=== PATIENT | male | born 1945 | race Caucasian/White ===

== ENCOUNTER 2024-09-23 10:35 | Day surgery (SDC) | payer MEDICARE, OTHER, SELFPAY ==
[2024-09-21 13:39] VITALS: BMI 32.7
--- NOTE | 2024-09-22 12:46 | P.CONAN_ITS ---
Documented by User: Vidhi Talavera NP 09/22/24 12:50 HPI - Anesthesia Eval Consult details Narrative: 79yo M for Upper Endoscopy and Colonoscopy Pacer in situ for SSS 2020 Follows [facility] cardiology. Stable at 06/2024 office visit Anesthesia Pre-Procedure Meds Is the patient on any of the following meds?: GLP1/DPP4 PMFSH Past Medical History Medical History Diabetes Hx of radiation therapy Prostate cancer Barretts esophagus Tubular adenoma Hyperlipidemia HTN (hypertension) Sick sinus syndrome Surgical History Surgical History Hx of knee surgery Hx of hernia repair Hx of hand surgery S/P prostatectomy History of esophagogastroduodenoscopy (EGD) H/O colonoscopy History of permanent cardiac pacemaker placement Social History Social History Advance Directives: No Advance Directives Information Provided: Yes Meds Allergies Allergy/AdvReac Type Severity Reaction Status Date / Time No Known Allergies Allergy Verified 09/23/24 11:18 Home Medications ?Medication ?Instructions ?Recorded ?Confirmed ?Last Taken ?Type amlodipine 10 mg tablet 10 mg PO DAILY 09/21/24 09/21/24 Unknown History carvedilol 6.25 mg tablet 6.25 mg PO BID 09/21/24 09/21/24 Unknown History cholecalciferol (vitamin D3) 25 25 mcg PO DAILY 09/21/24 09/21/24 Unknown History mcg (1,000 unit) tablet (Vitamin D3) diphenoxylate-atropine 2.5 1 tab PO BID PRN Diarrhea 09/21/24 09/21/24 Unknown History mg-0.025 mg tablet fenofibrate micronized 200 mg 200 mg PO DAILY 09/21/24 09/21/24 Unknown History capsule gabapentin 100 mg capsule 100 mg PO TID 09/21/24 09/21/24 Unknown History hydralazine 50 mg tablet 50 mg PO TID 09/21/24 09/21/24 Unknown History insulin degludec 100 unit/mL (3 44 unit subcut BID 09/21/24 09/23/24 History mL) subcutaneous pen (Tresiba FlexTouch U-100 insulin) insulin lispro 100 unit/mL subcut 09/21/24 Unknown History subcutaneous pen (Admelog SoloStar U-100 Insulin lispro) levofloxacin 750 mg tablet 750 mg PO DAILY 09/21/24 09/21/24 Unknown History linagliptin 5 mg tablet (Tradjenta) 5 mg PO DAILY 09/21/24 09/21/24 Unknown History metronidazole 500 mg tablet 500 mg PO TID 09/21/24 09/21/24 Unknown History multivitamin 1 tab PO DAILY 09/21/24 09/21/24 Unknown History omega 7-[id number]-[id number]-fish oil 1,000 mg 1 cap PO TID 09/21/24 09/21/24 Unknown History (120 mg-180 mg) capsule (Fish Oil) omeprazole 40 mg capsule,delayed 40 mg PO DAILY 09/21/24 09/21/24 Unknown History release ondansetron 4 mg disintegrating 4 mg PO TID PRN nausea 09/21/24 09/21/24 Unknown History tablet potassium chloride 10 mEq 10 meq PO DAILY 09/21/24 09/21/24 Unknown History tablet,extended release terazosin 2 mg capsule 2 mg PO BEDTIME 09/21/24 09/21/24 Unknown History trazodone 100 mg tablet 100 mg PO BEDTIME 09/21/24 09/21/24 Unknown History triamterene 37.5 2 cap PO DAILY 09/21/24 09/21/24 Unknown History mg-hydrochlorothiazide 25 mg capsule Exam Height,Weight and Vital Signs: Height 5 ft 8 in Weight 97.522 kg Narrative Narrative: Pacer interrogation 07/2024 on chart - 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 Signed By: Maurice Quintero MD Stress Test NM Myocard Perf SPECT Multi ? 08:00:00 Summary No evidence of myocardium at risk for significant reversible ischemia or previous myocardial infarction. Normal left ventricular size and function. Signatures _ _ ? Signed By: Maurice Quintero MD EchoEchocardiogram - Complete ? 09:37:59 Summary Due to suboptimal visual quality, Lumason contrast was used to enhance this study. The left ventricular ejection fraction is 50-55 %. The LV systolic function is low normal . The left ventricular wall thickness is mildly increased. Normal right ventricular size and function. No significant valvular disease. Comparison Comparison is made to the study of September 18, 2020. There is no significant change. Signature ? Signed By: Maurice Quintero MD Assessment and Plan Assessment Anesthesia Assessment: Chart Reviewed Documented by User: Naomi Rendon MD 09/23/24 11:29 PMFSH Past Medical History Medical History Diabetes Hx of radiation therapy Prostate cancer Barretts esophagus Tubular adenoma Hyperlipidemia HTN (hypertension) Sick sinus syndrome Family History Family history of problems with anesthesia: No Surgical History Surgical History Hx of knee surgery Hx of hernia repair Hx of hand surgery S/P prostatectomy History of esophagogastroduodenoscopy (EGD) H/O colonoscopy History of permanent cardiac pacemaker placement History of Problems with Anesthesia: No Social History Social History Advance Directives: No Advance Directives Information Provided: Yes Meds Allergies Allergy/AdvReac Type Severity Reaction Status Date / Time No Known Allergies Allergy Verified 09/23/24 11:18 Home Medications ?Medication ?Instructions ?Recorded ?Confirmed ?Last Taken ?Type amlodipine 10 mg tablet 10 mg PO DAILY 09/21/24 09/21/24 Unknown History carvedilol 6.25 mg tablet 6.25 mg PO BID 09/21/24 09/21/24 Unknown History cholecalciferol (vitamin D3) 25 25 mcg PO DAILY 09/21/24 09/21/24 Unknown History mcg (1,000 unit) tablet (Vitamin D3) diphenoxylate-atropine 2.5 1 tab PO BID PRN Diarrhea 09/21/24 09/21/24 Unknown History mg-0.025 mg tablet fenofibrate micronized 200 mg 200 mg PO DAILY 09/21/24 09/21/24 Unknown History capsule gabapentin 100 mg capsule 100 mg PO TID 09/21/24 09/21/24 Unknown History hydralazine 50 mg tablet 50 mg PO TID 09/21/24 09/21/24 Unknown History insulin degludec 100 unit/mL (3 44 unit subcut BID 09/21/24 09/23/24 History mL) subcutaneous pen (Tresiba FlexTouch U-100 insulin) insulin lispro 100 unit/mL subcut 09/21/24 Unknown History subcutaneous pen (Admelog SoloStar U-100 Insulin lispro) levofloxacin 750 mg tablet 750 mg PO DAILY 09/21/24 09/21/24 Unknown History linagliptin 5 mg tablet (Tradjenta) 5 mg PO DAILY 09/21/24 09/21/24 Unknown History metronidazole 500 mg tablet 500 mg PO TID 09/21/24 09/21/24 Unknown History multivitamin 1 tab PO DAILY 09/21/24 09/21/24 Unknown History omega 7-pvf-sid-fish oil 1,000 mg 1 cap PO TID 09/21/24 09/21/24 Unknown History (120 mg-180 mg) capsule (Fish Oil) omeprazole 40 mg capsule,delayed 40 mg PO DAILY 09/21/24 09/21/24 Unknown History release ondansetron 4 mg disintegrating 4 mg PO TID PRN nausea 09/21/24 09/21/24 Unknown History tablet potassium chloride 10 mEq 10 meq PO DAILY 09/21/24 09/21/24 Unknown History tablet,extended release terazosin 2 mg capsule 2 mg PO BEDTIME 09/21/24 09/21/24 Unknown History trazodone 100 mg tablet 100 mg PO BEDTIME 09/21/24 09/21/24 Unknown History triamterene 37.5 2 cap PO DAILY 09/21/24 09/21/24 Unknown History mg-hydrochlorothiazide 25 mg capsule Exam Airway Mallampati Class: II TM Dist: <=3cm Neck ROM: Limited Heart: rrr Lungs: cta Assessment and Plan Assessment Anesthesia Assessment: Anesthesia Plan Discussed Final Anesthetic Review Family History of Problems with Anesthesia: No History of Problems with Anesthesia: No NPO: Yes Final Preanesthetic Review: No Changes in Pt Med Stat, Meds/Allgs Chart Reviewed, Consent Obtained/Reviewed and Anes Risks/Benef Reviewed Patient Risk: Intermediate Procedure Risk: Low Anesthetic Plan Anesthetic Plan: MAC: Disposition: Standard PACU, Extended PACU, Inp. Admit - Standard Bed, Inp. Admit - IMC and Inp. Admit - ICU
[2024-09-23 11:27] VITALS: BMI 33.0
--- NOTE | 2024-09-23 11:45 | MHC.SHP ---
Pre-Procedural Eval Section A - 24 Hr Update-Section A only Date of Service: 09/23/24 Section B - Complete if H&P > 30 days Chief Complaint: Diverticulitis of intestine,diarrhea,abnormal find Details of Present Illness: see H&P no changes Relevant Family History (Specify if Yes): No Relevant Social History: None Present Medications: see Short Stay Collaborative assessment Medical History: No relevant PMH Allergies: Allergies Allergy/AdvReac Type Severity Reaction Status Date / Time No Known Allergies Allergy Verified 09/23/24 11:18 Review of Systems Sugical H&P ROS: Negative: Constitution, Cardiovascular, Respiratory, Neurological, Psychiatric, Hem-Onc, Allergic/Immunologic, Gastrointestinal, Genitourinary, Musculoskeletal, Integumentary, Endocrine and Eyes/Ears/Nose/Throat Exam Surgical H&P Exam: Normal: HEENT, Normal: Heart, Normal: Lungs, Normal: Extremities, Normal: Abdomen, Normal: Skin and Normal: Neurological Plan Diagnosis/Plan: Unchanged I have reviewed the history and physical and performed a pertinent physical examination on my patient. No changes have occurred unless specified. Time Spent With Patient Time: Total time managing care of this patient today ____ minutes.
[2024-09-23 11:56] VITALS: BP 132/66; PULSE 83; RESP 14; TEMP 36.9; O2SAT 95
[2024-09-23 12:05] LABS: Glucose, Whole Blood 82 mg/dL (60-115)
--- OUTSIDE RECORDS SUMMARY | 2024-09-23 12:38 | XMS_ITS | Continuity of Care Document ---
Author Organization [facility] Primary [facility] e [place] Address [address] [place] [address]- Care Team Providers Care Culinary Instructor Name Role Phone Alta Victoria NP Primary Care Physician ( [phone] Encounter [facility] Date(s): 08/01/24 - 08/31/24 [facility] [address], [place] [address] Encounter Type: Triage Allergies, Adverse Reactions, Alerts No Known Allergies Immunizations Given and Recorded Vaccine Date Status Refusal Reason RSV vaccine preF3, recombinant 05/28/24 Recorded SARS-CoV-2(COVID-19)mRNA-LNP vac([id number]) 05/28/24 Recorded influenza virus vaccine, inactivated 05/14/24 Curt rded influenza virus vaccine, inactivated 06/13/23 Curt rded influenza virus vaccine, inactivated 08/06/22 Give n influenza virus vaccine, inactivated 06/13/20 Give n influenza virus vaccine, inactivated 07/12/19 Curt rded influenza virus vaccine, inactivated 06/07/18 Give n influenza virus vaccine, inactivated 1 06/23/17 Gi augusto influenza virus vaccine, inactivated 2 06/23/16 Gi augusto influenza virus vaccine, inactivated 07/02/15 Give n [id number] bivalent booster vax 06/13/23 Recorded SARS-CoV-2 mRNA (tknitor-eibd-gnwij) vax 12/23/21 Given SARS-CoV-2 (COVID-19) mRNA BNT-162b2 vac 06/11/21 Recorded SARS-CoV-2 (COVID-19) mRNA BNT-162b2 vac 10/29/20 Recorded SARS-CoV-2 (COVID-19) mRNA BNT-162b2 vac 10/08/20 Recorded Influenza Virus Vaccine (oldterm) 07/20/19 Recorde d tetanus/diphtheria/pertussis, acel(Tdap) 02/24/17 Given pneumococcal 13-valent vaccine 11/07/14 Recorded pneumococcal 23-valent vaccine 07/01/12 Recorded pneumococcal 23-valent vaccine 08/11/05 Recorded 1Result Comment: [06/23/2017] [facility]: [id number] 2Result Comment: [06/23/2016] [facility]# [id number] Medications Accu-Check Guide meter Accu-Check Guide meter, See Instructions, # 1 each, Refills 0, Tot. Refills 0, Maintenance, use to check blood glucose 3 times daily E11.9, 11/21/22 10:59:00 AM EDT, Supply, 180, cm, 11/14/22 14:10:00EST, Height, 109.3, kg, 02/24/22 16:33:00 EDT, Dry Weight Start Date: 11/21/22 Status: Ordered Quantity: 1.0 Unit: each Repeat number: 1 Accu-check guide test strips Accu-check guide test strips, See Instructions, # 100 each, Refills 10, Tot. Refills 10, Maintenance, use to check blood glucose 3 times daily E11.9, 11/21/22 11:02:00 AM EDT, Supply, 180, cm, 11/14/22 14:10:00 EST, Height, 109.3, kg, 02/24/22 16:33:00 EDT, Dry Weight Start Date: 11/21/22 Status: Ordered Quantity: 100.0 Unit: each Repeat number: 11 Accu-check soft clix lancets Accu-check soft clix lancets, See Instructions, # 100 each, Refills 10, Tot. Refills 10, Maintenance, use to check blood glucose 3 times daily E11.9, 11/21/22 11:00:00 AM EDT, Supply, 180, cm, 11/14/22 14:10:00 EST, Height, 109.3, kg, 02/24/22 16:33:00 EDT, Dry Weight Start Date: 11/21/22 Status: Ordered Quantity: 100.0 Unit: each Repeat number: 11 acetaminophen 325 mg oral tablet 650 mg, By Mouth, Every 6 hours, PRN, Refills 0, Maintenance, Pain , Mild, 05/04/21 10:57:00 AM EDT,Partial fill upon patient request if the prescription is for a schedule II opioid drug. Start Date: 05/04/21 Status: Ordered Repeat number: 1 Admelog SoloStar 100 units/mL injectable solution See Instructions, (E11.65). BG Before meals Take: 100-150 10 units 151-200 12 units 201-250 14 units 251-300 16 units >301 18 units Scale @ Bedtime for correction 201- 250 2 U 251-300 4 U > 3016U MDD 62 U 90 day supply, # 75 mL, 3 Refills, Maintenance, 04/07/24 12:20:00 PM EDT, [facility]/pharmacy #[id number], Partial fill upon patient request if the prescription is for a schedule II opioid drug., 173, cm, 04/05/24 14:33:00 EDT, Height, 106.2, kg, 01/20/24 7:40:00 EDT, Dry Weight Start Date: 04/07/24 Status: Ordered Quantity: 75.0 Unit: mL Repeat number: 4 Indication: Type 2 diabetes mellitus without complications amLODIPine 10 mg oral tablet 10 mg, 1, tablet, By Mouth, Daily, # 90 tablet, Refills 3, Tot. Refills 3, Maintenance, 09/23/23 5:36:00 PM EST, Route to Pharmacy Electronically, [facility]/pharmacy #[id number], Partial fill upon patient requestif the prescription is for a schedule II opioid drug., 180, cm, 08/19/23 14:21:00 EST, Height, 103,kg, 03/31/23 12:44:00 EDT, Dry Weight Start Date: 09/23/23 Status: Ordered Quantity: 90.0 Unit: tablet Repeat number: 4 Baqsimi One Pack 3 mg nasal powder = 3 mg, Naris, Left, Once, # 2 each, 0 Refills, Soft Stop, 06/05/23 4:01:00 PM EDT, [facility]/pharmacy #[id number], Partial fill upon patient request if the prescription is for a schedule II opioid drug., 180, cm, 06/05/23 15:11:00 EDT, Height, 103, kg, 03/31/23 12:44:00 EDT, Dry Weight Start Date: 06/05/23 Status: Ordered Quantity: 2.0 Unit: each Repeat number: 1 BD ARNOLD 2 GEN PEN NDL 32G 4MM BD ARNOLD 2 GEN PEN NDL 32G 4MM, See Instructions, # 540 Unknown, 4 Refills, Maintenance, INJECT INSULIN 6 TIMES DAILY, 04/01/24 12:57:00 PM EDT, 173, cm, 03/28/24 11:05:00 EDT, Height, 106.2, kg, 01/20/24 7:40:00 EDT, Dry Weight Start Date: 04/01/24 Status: Ordered Quantity: 540.0 Unit: Unknown Repeat number: 1 carvedilol 6.25 mg oral tablet 6.25 mg, 1, tablet, By Mouth, 2 times a day, # 180 tablet, Refills 2, Tot. Refills 2, Maintenance, 06/13/24 1:29:00 PM EDT, Route to Pharmacy Electronically, [facility]/pharmacy #[id number], Partial fill upon patient request if the prescription is for a schedule II opioid drug., 172, cm, 06/11/24 18:37:00 EDT, Height, 102, kg, 06/11/24 18:37:00 EDT, Dry Weight Start Date: 06/13/24 Stop Date: 03/10/25 Status: Ordered Quantity: 180.0 Unit: tablet Repeat number: 3 Daily Multiple Vitamins TAKE 1 TABLET DAILY., 12/30/11 11:20:00 AM EDT Start Date: 12/30/11 Status: Ordered Repeat number: 1 diclofenac 1% topical gel = 2 Gm, Topically, 4 times a day, # 100 Gm, 0 Refills, Maintenance, 04/05/24 4:30:00 PM EDT, Gel, [facility]/pharmacy #[id number], Partial fill upon patient request if the prescription is for a schedule II opioid drug., 173, cm, 04/05/24 14:33:00 EDT, Height, 106.2, kg, 01/20/24 7:40:00 EDT, Dry Weight Start Date: 04/05/24 Status: Ordered Quantity: 100.0 Unit: g Repeat number: 1 fenofibrate 200 mg oral capsule 1 capsule, By Mouth, Daily, # 90 capsule, 1 Refills, 05/23/24 11:48:00 AM EDT, [facility]/pharmacy #[id number], 173, cm, 05/10/24 13:25:00 EDT, Height, 106.2, kg, 01/20/24 7:40:00 EDT, Dry Weight Start Date: 05/23/24 Status: Ordered Quantity: 90.0 Unit: capsule Repeat number: 2 gabapentin 100 mg oral capsule 100 mg, 1, capsule, By Mouth, 3 times a day, # 90 capsule, Refills 1, Tot. Refills 1, Maintenance, 07/05/24 12:46:00 PM EDT, Route to Pharmacy Electronically, [facility]/pharmacy #[id number], Partial fill upon patient request if the prescription is for a schedule II opioid drug., 172, cm, 07/05/24 12:23:00 EDT, Height, 102, kg, 06/11/24 18:37:00 EDT, Dry Weight Start Date: 07/05/24 Status: Ordered Quantity: 90.0 Unit: capsule Repeat number: 2 Glucagon Emergency Kit See Instructions, # 1 each, Maintenance, use for hypoglycemic emergency if uncontion and blood sugar <60, 11/14/22 9:13:00 PM EST, Supply, 180, cm, 11/14/22 14:10:00 EST, Height, 109.3, kg, 02/24/22 16:33:00 EDT, Dry Weight Start Date: 11/14/22 Status: Ordered Quantity: 1.0 Unit: each Repeat number: 1 Indication: Type 2 diabetes mellitus with unspecified complications Gvoke HypoPen 0.5 mg/0.1 mL subcutaneous solution 0.1 mL = 0.5 mg, Subcutaneous Injection, Once, use only for low blood sugars, # 0.1 mL, 1 Refills, Soft Stop, 06/12/23 12:06:00 PM EDT, Solution, [facility]/pharmacy #[id number], Partial fill upon patient request if the prescription is for a schedule II opioid drug., 180, cm, 06/05/23 15:11:00 EDT, Height, 103, kg, 03/31/23 12:44:00 EDT, Dry Weight Start Date: 06/12/23 Status: Ordered Quantity: 0.1 Unit: mL Repeat number: 2 hydrALAZINE 50 mg oral tablet 1 tablet = 50 mg, By Mouth, 3 times a day, # 270 tablet, 3 Refills, Maintenance, 09/23/23 3:49:00 PMEST, Tablet, [facility]/pharmacy #[id number], Partial fill upon patient request if the prescription is for a schedule II opioid drug., 180, cm, 08/19/23 14:21:00 EST, Height, 103, kg, 03/31/23 12:44:00 EDT, Dry Weight Start Date: 09/23/23 Status: Ordered Quantity: 270.0 Unit: tablet Repeat number: 4 hydrochlorothiazide-triamterene 25 mg-37.5 mg oral capsule 2 capsule, By Mouth, Daily, # 180 capsule, 3 Refills, Maintenance, 09/15/23 4:42:00 PM EST, [facility]/pharmacy #[id number], 2 capsule By Mouth Daily, 180, cm, 08/19/23 14:21:00 EST, Height, 103, kg, 03/31/23 12:44:00 EDT, Dry Weight Start Date: 09/15/23 Status: Ordered Quantity: 180.0 Unit: capsule Repeat number: 4 Imodium Multi-Symptom Relief 2 mg-125 mg oral tablet 2 tablets, By Mouth, 2 times a day, PRN for loose stool, TAKE 2 TABLET TWICE DAILY, # 40 tablet, 07/10/14 11:10:00 AM EST, Tablet Start Date: 07/10/14 Status: Ordered Quantity: 40.0 Unit: tablet Repeat number: 1 Lomotil 0.025 mg-2.5 mg oral tablet 1, tablet, By Mouth, 2 times a day, PRN, for 90 days, # 180 tablet, Refills 3, Tot. Refills 3, Acute, for loose stool, 03/26/25 12:44:00 PM EDT, 03/31/24 12:44:00 PM EDT, Route to Pharmacy Electronically, [facility]/pharmacy #[id number] Tablet, Partial fill upon patient request if the prescription is for a schedule II opioid drug., 180, cm, 12/23/23 14:00:00 EDT, Height, 103, kg, 03/31/23 12:44:00 EDT, Dry Weight Start Date: 03/31/24 Stop Date: 03/26/25 Status: Ordered Quantity: 180.0 Unit: tablet Repeat number: 4 NuLYTELY with Flavor Packs oral powder for reconstitution See Instructions, Drink 240mL every 15-20 minutes until first half is gone. Repeat 6 hours prior toprocedure., # 4,000 mL, 0 Refills, Maintenance, 03/11/22 9:22:00 AM EDT, [facility]/pharmacy #[id number], Partial fill upon patient request if the prescription is for a schedule II opioid drug., Drink 240mL every 15-20 minutes until first half is gone. Repeat 6 hours prior to procedure., 180, cm, 02/28/22 10:34:00 EDT, Height, 109.3, kg, 02/24/22 16:33:00 EDT, Dry Weight Start Date: 03/11/22 Status: Ordered Quantity: 4000.0 Unit: mL Repeat number: 1 [place]-3 oral capsule 0 Refills, Maintenance, 04/23/20 11:29:00 AM EDT Start Date: 04/23/20 Status: Ordered Repeat number: 1 omeprazole 40 mg oral enteric coated capsule 1 capsule, By Mouth, Daily, # 90 capsule, 1 Refills, 08/29/24 11:28:00 AM EST, [facility]/pharmacy #[id number], 173, cm, 07/31/24 13:24:00 EST, Height, 103.4, kg, 07/31/24 9:51:00 EST, Dry Weight Start Date: 08/29/24 Status: Ordered Quantity: 90.0 Unit: capsule Repeat number: 2 ondansetron 4 mg oral tablet, disintegrating 1 tablet = 4 mg, By Mouth, 3 times a day, PRN as needed for nausea/vomiting, # 10 tablet, 0 Refills, Maintenance, 07/31/24 1:03:00 PM EST, DIS Tablet, [facility]/pharmacy #[id number], Partial fill upon patient request if the prescription is for a schedule II opioid drug., 173, cm, 07/31/24 9:45:00 EST, Height, 103.4, kg, 07/31/24 9:51:00 EST, Dry Weight Start Date: 07/31/24 Status: Ordered Quantity: 10.0 Unit: tablet Repeat number: 1 Pen needels 32 G x 4mm Utrafine III Pen needels 32 G x 4mm Utrafine III, See Instructions, # 200 each, Refills 11, Tot. Refills 11, Maintenance, to use 6x /day E11.9., 02/23/23 1:46:00 PM EDT, Supply, 180, cm, 02/23/23 13:06:00 EDT, Height, 109.3, kg, 02/24/22 16:33:00 EDT, Dry Weight Start Date: 02/23/23 Status: Ordered Quantity: 200.0 Unit: each Repeat number: 12 Potassium Chloride (Eqv-K-Tab) 10 mEq oral tablet, extended release 1 tablet = 10 mEq, By Mouth, 2 times a day, # 14 tablet, 0 Refills, Maintenance, 07/31/24 1:03:00 PM EST, ER Tablet, [facility]/pharmacy #[id number], Partial fill upon patient request if the prescription is for aschedule II opioid drug., 173, cm, 07/31/24 9:45:00 EST, Height, 103.4, kg, 07/31/24 9:51:00 EST, Dry Weight Start Date: 07/31/24 Stop Date: 08/07/24 Status: Ordered Quantity: 14.0 Unit: tablet Repeat number: 1 terazosin 2 mg oral capsule 2 mg, 1, capsule, By Mouth, Daily at bedtime, # 90 capsule, Refills 3, Tot. Refills 3, Maintenance,09/23/23 3:49:00 PM EST, Route to Pharmacy Electronically, [facility]/pharmacy #[id number], Partial fill upon patient request if the prescription is for a schedule II opioid drug., 180, cm, 08/19/23 14:21:00 EST, Height, 103, kg, 03/31/23 12:44:00 EDT, Dry Weight Start Date: 09/23/23 Status: Ordered Quantity: 90.0 Unit: capsule Repeat number: 4 Tradjenta 5 mg oral tablet 1 tablet, By Mouth, Daily, # 90 tablet, 3 Refills, Maintenance, 03/25/24 2:20:00 PM EDT, [facility]/pharmacy #[id number], 173, cm, 03/25/24 14:02:00 EDT, Height, 106.2, kg, 01/20/24 7:40:00 EDT, Dry Weight Start Date: 03/25/24 Stop Date: 03/20/25 Status: Ordered Quantity: 90.0 Unit: tablet Repeat number: 4 Indication: Type 2 diabetes mellitus without complications traZODone 100 mg oral tablet 100 mg, 1, tablet, By Mouth, Daily at bedtime, # 90 tablet, Refills 1, Tot. Refills 1, Maintenance,04/28/24 10:08:00 AM EDT, Route to Pharmacy Electronically, [facility]/pharmacy #[id number], Partial fill upon patient request if the prescription is for a schedule II opioid drug., 173, cm, 04/05/24 14:33:00 EDT, Height, 106.2, kg, 01/20/24 7:40:00 EDT, Dry Weight Start Date: 04/28/24 Stop Date: 07/26/24 Status: Ordered Quantity: 90.0 Unit: tablet Repeat number: 2 Tresiba FlexTouch 100 units/mL subcutaneous solution See Instructions, INJECT 44 UNITS SUBCUTANEOUSLY TWICE DAILY, # 84 mL, 3 Refills, Maintenance, 03/25/24 2:17:00 PM EDT, [facility]/pharmacy #[id number], 173, cm, 03/25/24 14:02:00 EDT, Height, 106.2, kg, 01/20/24 7:40:00 EDT, Dry Weight Start Date: 03/25/24 Status: Ordered Quantity: 84.0 Unit: mL Repeat number: 4 Indication: Type 2 diabetes mellitus without complications Vitamin D3 2000 intl units oral tablet 1 tablet = 50 mcg, By Mouth, Daily, 0 Refills, Maintenance, 03/27/22 1:49:00 PM EDT, Partial fill upon patient request if the prescription is for a schedule II opioid drug. 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 Lumbar radiculopathy Confirmed Active Nausea Confirmed Active Obese class I Confirmed Active Obesity Confirmed Active Palpitations Confirmed Active Encounter for preventive health examination Confirmed Active Plantar fasciitis Confirmed Active SSS S/P PPM Confirmed Active Type 2 diabetes mellitus Confirmed Active Urinary tract infection Confirmed Active 1Per chart review meeting GFR criteria Social History Social History Type Response Smoking Status Former smoker; Other : quit over 20 years ago; entered on: 05/22/15 Sex Sex Representation Male (finding) Implantable Device List Procedure Provider Procedure Date Device Type Site Insertion Primary Pacemaker Dual Chung Lizarraga MD 05/03/21 Unknown Chest Device Identifier Serial Number Lot or Batch Number Manufacturing Date Expiration Date Distinct Identification Code MRI Safety Implantable Status Assigning Authority Unknown [id number] Unknown 03/29/23 Unknown Unknown Active Unkno wn Procedure Provider Procedure Date Device Type Site Insertion Primary Pacemaker Dual Chung Lizarraga MDemiah 05/03/21 Unknown Chest Device Identifier Serial Number Lot or Batch Number Manufacturing Date Expiration Date Distinct Identification Code MRI Safety Implantable Status Assigning Authority Unknown [id number] Unknown Unknown 05/07/22 Unknown Unknown Active Unk nown Procedure Provider Procedure Date Device Type Site Insertion Primary Pacemaker Dual Chung Lizarraga MDemiah 05/03/21 Unknown Chest Device Identifier Serial Number Lot or Batch Number Manufacturing Date Expiration Date Distinct Identification Code MRI Safety Implantable Status Assigning Authority Unknown [id number] Unknown Unknown 05/11/22 Unknown Unknown Active Unkn own Patient Care team information Care Team Personnel Name: Norma SAGASTUME, Rosana Position: [facility] RN Member Role: Primary Care Nurse Name: Alta Victoria NP Position: [facility] PCO Associate Professional Member Role: PCP Address: [address] [place] [address] Telecom: Care Team Related Persons Name: KAHLIL FRAZIER Name: BRIANNA KING Insurance Providers Guarantor name: OTIS KING [facility] Information #: 1 Payer: MEDICARE PART B OUTPT Member Number: NA Policy Number: NA Group Number: NA Health Plan Information #: 2 Payer: LORAINE ERAZO Member Number: NA Policy Number: NA Group Number: NA
--- OUTSIDE RECORDS SUMMARY | 2024-09-23 12:38 | XMS_ITS | Continuity of Care Document ---
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 It does not include entries that were removed or entered in error. Problem Status Onset Date Problem Type Date of Resolution Comments Source Arthritis Active Condition Jul 16 Entered By: OTIS DREW Comment: Diffuse Arthralgias; Sees Private Rheum as of JUL 24 [place] Cardiac chest pain Active Condition N ov 2019 Entered By: OTIS DREW Comment: Nuclear Stress Test JUN 26: No IschemiaJul 10, 2020 Entered By: OTIS DREW Comment: Seen ED; Admitted [place] JUN 26: c/o Cardiac Ch PnJul 10, 2020 Entered By: OTIS DREW Comment: Ch Pn Deemed Not Cardiac in [place]; Had Accelerated Rise BP's;Jul 10, 2020 Entered By: OTIS DREW Comment: Ultimate Dx: Likely Severe ASHLEY; PSG pendingJul 29, 2021 Entered By: OTIS DREW Comment: Symptomatic Bradycardia - Pacemaker Placed 2020 [place] Care by local physician Active Condition Jul 07, 2016 Entered By: OTIS DREW Comment: Dr Sanchez at [facility] 2023 Entered By: OTIS DREW Comment: New PCP in 2023 Dr Victoria at [facility] Chronic kidney disease stage 3 Active Condition Aug 19, 2024 Entered By: OTIS DREW Comment: eGFR 59 in JUN 30 [place] Colitis Active Condition Aug 19 Entered By: OTIS DREW Comment: Chronic Diarrhea 2023; Saw GI @ [place]; Dx of Colitis and/orDec 2023 Entered By: OTIS DREW Comment: Diverticulitis ; pending Diagnost Colonoscopy and EGD in OCT 01 at [facility] Diabetes mellitus Active Condition Oc t 2015 Entered By: OTIS DREW Comment: No DR as of JUN 22; Sees Private Ophth Once 2015 Entered By: OTIS DREW Comment: Private Endo: Dr Gutierrez at [facility] 2018 Entered By: OTIS DREW Comment: EBONY RAIN, as of JUN 25: has Private OphthNov 2019 Entered By: OTIS DREW Comment: Next [facility] Ex[facility] SEP [facility] ([place])Aug 19, 2024 Entered By: OTIS DREW Comment: Sees Opth Every OCT of a Given Yr; No Advance of the DR as of Aug Entered By: OTIS DREW Comment: Sees Private Podiatry Every 2023 Entered By: OTIS DREW Comment: Last Saw Private Podiatry MAY 31 [place] Dyspnea Active Condition Aug 06 Entered By: OTIS DREW Comment: Cough and SOB x 2 Months 2021 Entered By: OTIS DREW Comment: PFT's WNL 2021; Inh's of no Avail; any Imaging Lungs UnremarkabkeNo v 2021 Entered By: OTIS DREW Comment: Cough SOB Resolved Spontaneously in 2021 [place] Family bereavement Active Condition N 2021 Entered By: OTIS DREW Comment: Passed JUL 29 [place] Gastroesophageal reflux disease Active Condition Jul 07, 2016 Entered By: OTIS DREW Comment: Private GI Dr Langley at [facility] 2016 Entered By: OTIS DREW Comment: Surveil EGD JUN 23: to eval for Godfrey's; result? [place] Hearing loss Active Condition Jul 07, 2016 Entered By: OTIS DREW Comment: Hearing Loss Bilat; Reads Lips as of JUN 22 [place] History of colonoscopy Active Condition Jul 07, 2016 Entered By: OTIS DREW Comment: Last Colonoscopy approx 2013: Neg CRC; +Benign PolypsJul 16, 2017 Entered By: OTIS DREW Comment: repeat 2019 [place] Hypercholesterolemia Active Condition [facility] Hypertension Active Condition Jul 07, 2016 Entered By: OTIS DREW Comment: Private Cardio Dr Snow at [place] (seen mostly for high BP;Jul 07, 2016 Entered By: OTIS DREW Comment: [facility] had [facility] and never any Cardiac Surg as of JUN 22) [place] Low back pain Active Condition Jul Entered By: OTIS DREW Comment: [facility] [place] Prostate cancer Active Condition Jul 07, 2016 Entered By: OTIS DREW Comment: Dx and Tx approx 1995; Tot. Prostatectomy thenJul 07, 2016 Entered By: OTIS DREW Comment: No Longer Sees [facility]; PCP Monitors PSANov 2020 Entered By: OTIS DREW Comment: Chronic Diarrhea s/p RT for Prostate CA [place] Diagnosis: ICD-10-CM K51.518 Left sided colitis with other complication Active Diagnosis [place] Diagnosis: ICD-10-CM E11.65 Type 2 diabetes mellitus with hyperglycemia Active Diagnosis [place] Diagnosis: ICD-10-CM Z46.1 Encounter for fitting and adjustment of hearing aid Active Diagnosis [facility] Medications Combined list of outpatient medications from Department of Defense and Veterans Affairs facilities.Medications provided include 1) outpatient medications from the last 15 months, and 2) patient-reported medications. Medication Details Route Status Patient Instructions Prescription Expires Prescription Number Last Dispense Date Ordering Provider Order Date Order Qty Source AMLODIPINE BESYLATE 10MG TAB TAKE ONE TABLET BY MOUTH ONCE DAILY ORAL ACTIVE YONY DREW 2022 [facility] IELD ATROPINE SO4 0.025MG/DIP HENOXYLATE HCL 2.5MG TAB TAKE ONE TABLET BY MOUTH TWICE DAILY ORAL ACTIVE YONY DREW 2020 [facility] IELD CARVEDILOL 6.25MG TAB TAKE ONE TABLET BY MOUTH TWICE DAILY ORAL ACTIVE YONY DREW 2020 [facility] IELD CHOLECALCIF ALAYNA 50MCG (2,000UNIT) TAB TAKE TWO TABLETS BY MOUTH EVERY DAY ORAL ACTIVE YONY DRWE 2015 [facility] IELD FENOFIBRATE TAB TAKE 200MG BY MOUTH ONCE DAILY ORAL ACTIVE YONY DREW 2019 [facility] IELD HYDRALAZINE HCL 50MG TAB TAKE ONE TABLET BY MOUTH THREE TIMES A DAY ORAL ACTIVE YONY DREW 2023 [facility] IELD HYDROCHLORO THIAZIDE 50MG/TRIAMT ERENE 75MG TAB TAKE ONE TABLET BY MOUTH ONCE DAILY ORAL ACTIVE YONY DREW 2021 [facility] IELD INSULIN,GLA RGINE-YFGN 100UNIT/ML INJ INJECT 44 UNITS SUBCUTAN EOUSLY ONCE DAILY SUBCUT ANEOUS ACTIVE YONY DREW 2023 [facility] IELD LOPERAMIDE HCL 2MG CAP TAKE 1 CAPSULE BY MOUTH EVERY DAY ORAL ACTIVE YONY DREW 2015 [facility] IELD OMEPRAZOLE 20MG CAP,EC TAKE 2 CAPSULES BY MOUTH EVERY MORNING 30 MINUTES BEFORE BREAKFAS T ORAL ACTIVE YONY DREW 2016 [facility] IELD OTHER CAP/TAB TAKE INVOKANA 300 MG BY MOUTH EVERY DAY ORAL ACTIVE YONY DREW 2015 [facility] IELD OTHER CAP/TAB TAKE NOVALOG SLIDE SCALE BY MOUTH THREE TIMES A DAY ORAL ACTIVE YONY DREW 2020 [facility] IELD OTHER CAP/TAB TAKE TRESIBA 40 MG BY MOUTH TWICE DAILY ORAL ACTIVE YONY DREW 2021 [facility] IELD OTHER CAP/TAB TAKE 37.5 25 MG TRIAMTER NCIOLE HCTZ BY MOUTH ONCE DAILY ORAL ACTIVE YONY DREW 2020 [facility] IELD OTHER CAP/TAB TAKE TRADJENT A 5M BY MOUTH ONCE AM ORAL ACTIVE YONY DREW 2020 [facility] IELD TERAZOSIN HCL 1MG CAP TAKE 1 CAPSULE BY MOUTH EVERY DAY ORAL ACTIVE YONY DREW 2015 [facility] IELD TERAZOSIN HCL 1MG CAP TAKE 1 CAPSULE BY MOUTH BEDTIME ORAL ACTIVE YONY DREW 2020 [facility] IELD Immunizations Combined list of available immunizations from the Department of Defense and Veterans Affairs facilities. Immunization Series Date Given Administered By Site Reaction Lot Number CVX Code Drug As400 Programmer Analyst Status Comments Source INFLUENZA, UNSPECIFIED FORMULATION 2023 88 complet ed [facility] RSV, BIVALENT, PROTEIN SUBUNIT RSVPREF, DILUENT RECONSTITUTED , 0.5 ML, PF 2022 BETY GRAFF F RIGHT DELTO ID [id number] 305 complet ed [place] PNEUMOCOCCAL POLYSACCHARID E PPV23 2022 BETY GRAFFN F LEFT DELTO ID [id number] 33 complet ed [facility] IELD INFLUENZA, UNSPECIFIED FORMULATION 2022 88 complet ed [facility] INFLUENZA, UNSPECIFIED FORMULATION 2021 88 complet ed [facility] INFLUENZA VACCINE, QUADRIVALENT, ADJUVANTED 2020 205 complet ed [facility] COVID-19 ([facility] at work), MRNA, LNP-S, PF, 30 MCG/0.3 ML DOSE 3 2020 208 complet ed [facility] ZOSTER RECOMBINANT 2 2020 187 complet ed [place] COVID-19 (PFIZER), MRNA, LNP-S, PF, 30 MCG/0.3 ML DOSE 2 2020 208 complet ed [facility] COVID-19 (PFIZER), MRNA, LNP-S, PF, 30 MCG/0.3 ML DOSE 1 2020 208 complet ed [facility] ZOSTER RECOMBINANT 1 2019 187 complet ed [place] INFLUENZA, UNSPECIFIED FORMULATION 2019 88 complet ed [facility] INFLUENZA, INJECTABLE, QUADRIVALENT, PRESERVATIVE FREE 2018 150 complet ed Site: Left Deltoid [place] INFLUENZA, SEASONAL, INJECTABLE 2017 141 complet ed at [facility] INFLUENZA, SEASONAL, INJECTABLE 2016 141 complet ed at [facility] TDAP 2016 115 complet ed [facility] FLU,3 YRS (HISTORICAL) 2015 88 complet ed [facility] ZOSTER (HISTORICAL) 2013 121 complet ed not sure excat yr [facility] PNEUMOCOCCAL CONJUGATE PCV 13 2012 133 complet ed not sure exact yr [facility] Vital Signs Combined list of inpatient and outpatient Vital Signs from Department of Defense and Veterans Affairs, ranging from 12 months to all on record, depending upon the facility. Vital Sign Value Date Comments Source SYSTOLIC BLOOD PRESSURE 130 08/19/2024 15:09:00 [place] DIASTOLIC BLOOD PRESSURE 78 08/19/2024 15:09:00 [place] Encounters Combined list of: 1) Encounters from Department of Veterans Affairs facilities going back up to thelast 18 months. 2) Encounters from the Department of Defense facilities going back up to 280 months. Location Location Details Encounter Type Encounter Number Reason For Visit Attending Provider ADM Date DC Date Status Disposition Source [facility] Outpatient Encounter [id number] 04/08 [facility] En[facility] [id number] 04/16 [facility] HEARING AID REPAIR/MOD IFYING [id number] Diagnos is: ICD-10- CM Z46.1 Encount er for fitting and adjustm ent of hearing aid<br/ > SHAWNEE BAGLEY 05/13 [facility] Out[facility] Encounter [id number] 06/07 [facility]counter [id number] 06/07 [facility] Out[facility]counter [id number] 06/07 [facility] Out[facility] Encounter [id number] 06/07 [facility] OFFICE O/P EST MOD 30-39 MIN [id number] Diagnos is: ICD-10- CM E11.65 Type 2 diabete s mellitu s with hypergl ycemia< br/> SEEMA DREW 08/03 [facility] IELD [facility] Out[facility] Encounter [id number] 05/08 [facility] [id number] 09/01 /2024 [facility] Outpatient Encounter [id number] 1.06/07 [facility] Outpatient Encounter [id number] 1.07/11 [facility] [place] OFF[facility] O/P EST MOD 30 MIN [id number] Diagnos is: ICD-10- CM K51.518 Left sided colitis with other complic ation<b r/> SEEMA DREW 08/19 [facility] IELD Social History Combined list of available smoking, tobacco, and other social history from Department of Defense and Veterans Affairs facilities. Social History Type Response Date Comment Sourc e Tobacco smoking status WAIS [facility] USE FORMER CIGARETTES 08/19/2024 [place] History of tobacco use VA-TOBACCO NEVER USED OTHER TYPE 08/19/2024 [place] History of tobacco use VA-TOBACCO FORMER USER 08/03/2023 [place] History of tobacco use MS-TOBACCO QUIT 1 5 YRS OR MORE 08/06/2022 [place] History of tobacco use VA-TOBACCO FORMER USER 07/29/2021 [place] History of tobacco use VA-TOBACCO FORMER USER 07/10/2020 [place] History of tobacco use MS-TOBACCO QUIT 1 5 YRS OR MORE 06/17/2019 [place] History of tobacco use VA-TOBACCO FORMER USER 06/10/2018 [place] History of tobacco use QUIT TOBACCO USE > 7 YEARS AGO 07/16/2017 20 yrws ago [place] History of tobacco use QUIT TOBACCO USE > 7 YEARS AGO 07/07/2016 quit 23 yrs ago [place]
--- OUTSIDE RECORDS SUMMARY | 2024-09-23 12:38 | XMS_ITS | Encounter Summary ---
Author Name [facility] [place] [facility] [place] Address [address] [place] [address] Care Team Providers Care Vp Corporate Partnerships Name Role Phone OTIS DREW Primary Care Provider Unavailabl e Insurance Providers: All historical and current Section Date Range: From patient's date of to the date document was created. This section includes the names of all active insurance providers for the patient. Insurance Provider Type of Coverage Plan Name Start of Policy Coverage End of Policy Coverage Group Number Member ID Insurance Provider's Telephone Number Policy Robins's Name Patient's Relationship to Policy Robins [facility] MEDICARE SUPPLEMEN [place] MEDIC ARE ARSH CE Mar 07[facility] [id number] [phone] OTIS KING PATIENT MEDICARE (WNR) MEDICARE (M) PART A January 05, 2009 PART A [id number] OTIS KING PATIENT MEDICARE (WNR) MEDICARE (M) PART B January 05, 2009 PART B [id number] 63A TOIS KING PATIENT MEDICARE (WNR) MEDICARE (M) PART B January 05, 2009 PART B [id number] OTIS KING PATIENT MEDICARE (WNR) MEDICARE (M) PART A January 05, 2009 PART A [id number] OTIS KING PATIENT OPTUM RX PRESCRIPT JESSICA SCHWAB [facility] Mar 07, 2020 [id number] [phone] OTIS KING PATIENT Selected Encounter This section includes the information on record at [place] for the Encounter. Date/Time Encounter Type Encounter Description Reason Provider Source Aug 19, 2024 03:00 PM OFFICE O/P EST MOD 30 MIN PRIMARY CARE/MEDICINE ICD-10-CM K51.518 Left sided colitis with other complication OTIS DREW [place] Encounter Template Text not used by [place] Assessments - Encounter Diagnoses This section includes the primary and secondary diagnoses documented for the Encounter. Date/Time Primary/Secondary Diagnosis Diagnosis Name Provider Source Aug 19, 2024 03:39 PM PRIMARY Left sided colitis with other complication OTIS DREW [facility] Aug 19, 2024 03:39 PM SECONDARY Essential (primary) hypertension OTIS DREW [facility] Aug 19, 2024 03:39 PM SECONDARY Pure hypercholesterolemia , unspecified [facility] Aug 19, 2024 03:39 PM SECONDARY Type 2 diabetes mellitus with hyperglycemia OTIS DREW [facility] Vital Signs: All taken on the encounter date This section contains inpatient and outpatient Vital Signs collected on the date of the Encounter. Date/Time Temperature Pulse Blood Pressure Respiratory Rate SP02 Pain Height Weight Body Mass Index Source Aug 19, 2024 03:11 PM 82 130/77 18 97 216 33 [place] Aug 19, 2024 03:09 PM 130/78 [place] Social History: Smoking Status (Most current) and Tobacco Use (All prior to encounter date) This section includes the most current, and the historical, smoking and tobacco- related health factors from the [place] facility where the Encounter took place. Current Smoking Status This section includes the most current smoking, or tobacco-related health factor, from the [place] facility where the Encounter took place. Date/Time Current Smoking Status Comment Facil ity Aug 19, 2024 03:00 PM VA-TOBACCO USE FORMER CIGARETTES [facility] Tobacco Use History This section includes a history of the smoking, or tobacco-related health factors, that were collected on or before the date of the Encounter. The data comes from the [place] facility where the Encounter took place. Date/Time Smoking Status/Tobacco Use Comment F acility Aug 19, 2024 03:00 PM VA-TOBACCO USE FORMER CIGARETTES [facility] Aug 03, 2023 02:00 PM VA-TOBACCO FORMER USER [facility] Aug 03, 2023 02:00 PM VA-TOBACCO QUIT 15 YRS OR MORE [facility] Aug 06, 2022 02:30 PM VA-TOBACCO FORMER USER [facility] Aug 06, 2022 02:30 PM VA-TOBACCO QUIT 15 YRS OR MORE [facility] Jul 29, 2021 01:00 PM VA-TOBACCO FORMER USER [facility] Jul 29, 2021 01:00 PM VA-TOBACCO QUIT 15 YRS OR MORE [facility] Jul 10, 2020 10:30 AM VA-TOBACCO FORMER USER [facility] Jul 10, 2020 10:30 AM VA-TOBACCO QUIT 15 YRS OR MORE [facility] Jun 17, 2019 02:52 PM VA-TOBACCO FORMER USER [facility] Jun 17, 2019 02:52 PM VA-TOBACCO QUIT 15 YRS OR MORE [facility] Jun 10, 2018 09:59 AM VA-TOBACCO FORMER USER [facility] Jun 10, 2018 09:59 AM VA-TOBACCO QUIT 15 YRS OR MORE [facility] Jul 16, 2017 01:08 PM QUIT TOBACCO USE > 7 YEARS AGO 20 yrws ago [facility] Jul 07, 2016 01:52 PM QUIT TOBACCO USE > 7 YEARS AGO quit 23 yrs ago [facility] Encounter Notes: All associated encounter notes This section contains the clinical notes associated to the Encounter. Date/Time Encounter Note(s) Provider Source Aug 19, 2024 03:12 PM PREVENTIVE MEDICIN E NURSING NOTE: LOCAL TITLE: CLINICAL REMINDERS/NURSING STANDARD TITLE: PREVENTIVE MEDICINE NURSING NOTE DATE OF NOTE: AUG 19, 2024@15:12 ENTRY DATE: AUG 19, 2024@15:12:24 AUTHOR: KYAW GRAFF COSIGNER: URGENCY: STATUS: COMPLETED Influenza Immunization: The patient has received the seasonal influenza vaccine for the current season at another location. Documented: INFLUENZA, UNSPECIFIED FORMULATION Historical Date Administered: Jul 11, 2024 Outside Location: [facility] Information Source: FROM PATIENT'S RECALL COVID-19 Immunization: Vaccine given previously - no written/electronic documentation available Comment: I got another one when I got the flu vaccine The patient was instructed to bring a copy of their COVID-19 vaccine information to their next appointment so that this can be accurately recorded in their [place] medical record. RHS Screen: RHS Screen Environmental Check Screening was not completed at this time due to: Another adult present HIV Screening: Patient has been offered HIV testing and has declined. I have explained that HIV testing is recommended for all adults, even if all risk factors are absent. The patient was educated on the risk of delayed screening. Diabetes: Kidney Health Evaluation: Last eGFR: EGFR No data available for: eGFR(CKD-EPI 2020) eGFR Last uACR: No uACR found within the past year eGFR (estimated Glomerular Filtration Rate) Patient declines having lab(s) done Comment: just had my labs done at my outside PCP Advance Directive Screen AD: Patient has an up-to-date Advance Directive at an outside, non-va facility and was asked to forward a copy to his/her clinician. /margareth/ KYAW GRAFF LPN LICENSED PRACTICAL NURSE Signed: 08/19/2024 15:14 KYAW GRAFF [facility] Aug 19, 2024 02:59 PM PHYSICIAN ASSISTMARILU T NOTE: LOCAL TITLE: PA NOTE STANDARD TITLE: PHYSICIAN CLINICAL RESEARCH MONITOR NOTE DATE OF NOTE: AUG 19, 2024@14:59 ENTRY DATE: AUG 19, 2024@14:59:47 AUTHOR: OTIS DREW EXP COSIGNER: URGENCY: STATUS: COMPLETED S - routine re-eval O - coop A&Ox3 NAD W-N/H/D HEENT: benign NECK: supple mobile LUNGS: resp full reg unlabored; CTA b/l COR: RRR. but heart sound are faint, no M ABD: considerable adiposity +superficial LLQ tenderness (the colitis) no peritoneal signs EXT: no LLE LABS: does outside VA; review labs done JUN 30 A/P - 1) DM II - A1C 6.3 in (approx) JUN 30 - on Insulin, Tresiba (32 Units a Day) - on Tradjenta (5 MG/day) - eye, foot care - diet, wt 2) HTN - BP 130/78 3) CKD, Stage 3 eGFR 59 in JUN 30; Creat 1.6 & BUN 25 Lytes WNL - K 4.0 - on Norvasc (10 MG/day) - on Hydralyzine (50 MG/TID) - on Triam/HCTZ (37.5 / 12.5 MG/day) 4) h/o Symptomatic Bradycardia Pacemaker Placed 2020 - on Coreg - HR 84 5) Lipidemia - TOT CHOL 130 & HDL 28 and LDL 77; TG 138 - on Fenofibrate (200 MG/day); LFT's WNL (AST 21 and ALT 13; Alk Phos 51) 6) New Dx Colitis Chronic Diarrhea - pending Diagnost Colonoscopy and EGD in OCT 01 - on Lomotil - up to 3-4 Times a Day 7) CBC: All WNL; H/H 13.8 / 44.0; MCV 79 WBC 7.6 and RBC 5.5 RTC AUG 01 - bring copy private labs Suicide Screen: C-SSRS Screening [place]-Suicide Severity Rating Scale (C-SSRS Screener) 1. Over the past month, have you wished you were or wished you could go to sleep and not wake up? No 2. Over the past month, have you had any actual thoughts of killing yourself? No 3. Over the past month, have you been thinking about how you might do this? Response not required due to responses to other questions. 4. Over the past month, have you had these thoughts and had some intention of acting on them? Response not required due to responses to other questions. 5. Over the past month, have you started to work out or worked out the details of how to kill yourself? Response not required due to responses to other questions. 6. If yes, at any time in the past month did you intend to carry out this plan? Response not required due to responses to other questions. 7. In your lifetime, have you ever done anything, started to do anything, or prepared to do anything to end your life (for example, collected pills, obtained a gun, gave away valuables, went to the roof but didn't jump)? No 8. If YES, was this within the past 3 months? Response not required due to responses to other questions. Depression Screening: Perform PHQ-2 A PHQ-2 screen was performed. The score was 0 which is a negative screen for depression. Over the past two weeks, how often have you been bothered by the following problems? 1. Little interest or pleasure in doing things Not at all 2. Feeling down, depressed, or hopeless Not at all Homelessness/Food Insecurity Screen: In the past 2 months, have you been living in stable housing that you own, rent, or stay in as part of a household? Yes - Living in stable housing. Are you worried or concerned that in the next 2 months you may NOT have stable housing that you own, rent, or stay in as part of a household? No - Not worried about housing near future The reports the following: Within the past 12 months, you worried whether your food would run out before you got money to buy more. Never true Within the past 12 months, the food you bought just didn't last and you didn't have money to get more. Never true Falls & Incontinence Screen: Falls Screen: During the past 12 months, did the patient report any falls? 4. No falls within the past year. Incontinence Screen: During the past 12 months, has the patient has any characteristics of incontinence (ability, voiding, leakage, etc.)? No incontinence. Tobacco Use Screening: The patient is a former cigarette smoker. The patient has never used other types of tobacco. Alcohol Use Screen (AUDIT-C): Alcohol Screen: SCREEN FOR ALCOHOL (AUDIT-C) An alcohol screening test (AUDIT-C) was negative (score=1). 1. How often did you have a drink containing alcohol in the past year? Consider a drink to be a 12 ounce can or bottle of regular beer, 8 ounces of malt liquor, a 5 ounce glass of table wine, or a 1.5 ounce shot of liquor (like scotch, gin, or vodka). Monthly or less 2. How many drinks containing alcohol did you have on a typical day when you were drinking in the past year? One or two drinks 3. How often did you have six or more drinks on one occasion in the past year? Never Medication Reconciliation: Outpatient: Has the patient been taking medications as documented in the EMLR? YES: The patient has been taking medications as documented in the EMLR. Essential Medication List for Review used to complete this medication reconciliation. INCLUDED IN THIS LIST: Alphabetical list of active outpatient prescriptions dispensed from this [place] (local) and dispensed from another VA or DoD facility (remote) as well as inpatient orders (local, pending and active), local clinic medications, locally documented non-VA medications, and local prescriptions that have or been discontinued in the past 90 days. - All changes in medications, including all non-VA/Herbal/OTC medications were entered into CPRS. Changes: nt - If there were any medications the patient should no longer take, they were discontinued. - The patient/caregiver was instructed to update this list, discard old lists, and take this list to the next appointment, whether with a VA or non-VA provider. Hemoglobin A1C: Hurt had HBA1C result from another health care site (results required). Date: May, ? Exact date is unknown Location: Outside Healthcare Provider Results: 6.3 approx month PAVE Foot Check: Patient indicates foot exam (including monofilament test for sensation) was performed in the past year in the private sector: Date: May, ? Exact date is unknown Result: Normal HTN Assess for Elevated BP>=140/90: Repeat blood pressure: 130/78 Diabetes: Kidney Health Evaluation: Last eGFR: EGFR No data available for: eGFR(CKD-EPI 2020) eGFR Last uACR: No uACR found within the past year eGFR and uACR (estimated Glomerular Filtration Rate and Urine Albumin-Creatinine Ratio)* Previous uACR completed at a location other than this VA Previous uACR with actual (numeric) results Date: June, ? Exact date is unknown Location: [facility] uACR: 72 mg/g Sexual Orientation: The patient thinks of their sexual orientation as: Straight or Heterosexual /es/ OTIS DREW PA-C STAFF PHYSICIAN CLINICAL RESEARCH MONITOR Signed: 08/19/2024 15:40 OTIS DREW
--- OUTSIDE RECORDS SUMMARY | 2024-09-23 12:38 | XMS_ITS | Encounter Summary ---
Author Name [facility] [place] [facility] [place] [facility] [place] Address [address] [place] [address] Care Team Providers Care Banquet Chef Name Role Phone OTIS DREW Primary Care [...] Robins's Name Patient's Relationship to Policy Robins [facility] MEDICARE SUPPLEMEN [place] MEDIC ARE ARSH CE Mar 07, 2020 [facility] [id number] [phone] OTIS KING PATIENT MEDICARE (WNR) MEDICARE (M) PART A January 05, 2009 PART A [id number] OTIS KING PATIENT MEDICARE (WNR) MEDICARE (M) PART B January 05, 2009 PART B [id number] OTIS KING PATIENT MEDICARE (WNR) MEDICARE (M) PART B January 05, 2009 PART B [id number] OTIS KING PATIENT MEDICARE (WNR) MEDICARE (M) PART A January 05, 2009 PART A [id number] [phone] OTIS KING PATIENT OPTUM RX PRESCRIPT JESSICA SCHWAB RD [facility] Mar 07, 2020 [id number] MIRIAMHARLEYOTIS PATIENT Selected Encounter This section includes the information on record at [place] for the Encounter. Date/Time Encounter Type Encounter Description Reason Pro vider Source May 08, 2024 12:00 AM Outpatient Encounter EVENT (HISTORICAL) IHE Encounter Template Text not used by [place] Plan of Treatment: Future Appointments (+ 6 months) and Future Tests (+/- 45 days) The Plan of Treatment section includes future care activities for the patient from all VA treatmentfacilities. This section includes future appointments and future orders which are active, pending or scheduled. Future Appointments This section includes appointments that were scheduled to occur 6 months from the date of the Encounter, up to a maximum of 20 appointments. The data comes from all [place] treatment facilities. Appointment Date/Time Appointment Type Appointme nt Facility Name Aug 19, 2024 03:00 PM AMBULATORY - MEDICINE [facility]
--- OUTSIDE RECORDS SUMMARY | 2024-09-23 12:38 | XMS_ITS | Encounter Summary ---
Author Name [facility] [place] [facility] [place] [facility] [place] Address [address] [place] [address] Care Team Providers Care Visual Merchandise Manager Name Role Phone OTIS DREW Primary Care [...] Robins's Name Patient's Relationship to Policy Robins [facility] MEDICARE SUPPLEMEN [place] MEDIC ARE ARSH CE Mar 07, 2020 [facility] [id number] OTIS KING PATIENT MEDICARE (WNR) MEDICARE (M) PART A January 05, 2009 PART A [id number] OTIS KING PATIENT MEDICARE (WNR) MEDICARE (M) PART B January 05, 2009 PART B [id number] OTIS KING PATIENT MEDICARE (WNR) MEDICARE (M) PART A January 05, 2009 PART A [id number] OTIS KING PATIENT MEDICARE (WNR) MEDICARE (M) PART B January 05, 2009 PART B [id number] OTIS KING PATIENT OPTUM RX PRESCRIPT JESSICA SCHWAB RD [facility] Mar 07, 2020 [id number] OTIS KING PATIENT Selected Encounter This section includes the information on record at [place] for the Encounter. Date/Time Encounter Type Encounter Description Reason Pro vider Source Jul 11, 2024 12:00 AM Outpatient Encounter EVENT (HISTORICAL) IHE Encounter Template Text not used by [place] Plan of Treatment: Future Appointments (+ 6 months) and Future Tests (+/- 45 days) The Plan of Treatment section includes future care activities for the patient from all [place] treatmentfacilities. This section includes future appointments and future orders which are active, pending or scheduled. Future Appointments This section includes appointments that were scheduled to occur 6 months from the date of the Encounter, up to a maximum of 20 appointments. The data comes from all [place] treatment facilities. Appointment Date/Time Appointment Type Appointme nt Facility Name Aug 19, 2024 03:00 PM AMBULATORY - MEDICINE [place] Immunizations: All administered on the encounter date This section contains immunizations associated to the Encounter. Immunization Series Date Issued Reaction Comments INFLUENZA, UNSPECIFIED FORMULATION Jul 11, 2024
--- OUTSIDE RECORDS SUMMARY | 2024-09-23 12:38 | XMS_ITS | Encounter Summary ---
Author Name [facility] [place] [facility] [place] [facility] [place] Address [address] [place] [address] Care Team Providers Care Cadd Manager Name Role Phone OTIS DREW Primary [...] Robins's Name Patient's Relationship to Policy Robins [facility] MEDICARE SUPPLEMEN [place] MEDIC ARE ARSH CE Mar 07, 2020 [facility] [id number] OTIS KING PATIENT MEDICARE (WNR) MEDICARE (M) PART A January 05, 2009 PART A [id number] OTIS KING PATIENT MEDICARE (WNR) MEDICARE (M) PART B January 05, 2009 PART B [id number] OTIS KING PATIENT MEDICARE (WNR) MEDICARE (M) PART A January 05, 2009 PART A [id number] OTIS KING PATIENT MEDICARE (WNR) MEDICARE (M) PART B January 05, 2009 PART B [id number] OTIS KING PATIENT OPTUM RX PRESCRIPT JESSICA SCHWAB RD [facility] Mar 07, 2020 [id number] MIRIAMHARLEYOTIS PATIENT Selected Encounter This section includes the information on record at [place] for the Encounter. Date/Time Encounter Type Encounter Description Reason Pro vider Source May 08, 2024 12:00 AM Outpatient Encounter EVENT (HISTORICAL) IHE Encounter Template Text not used by [place] Plan of Treatment: Future Appointments (+ 6 [...] 20 appointments. The data comes from all [place] treatment facilities. Appointment Date/Time Appointment Type Appointme nt Facility Name Aug 19, 2024 03:00 PM AMBULATORY - MEDICINE [facility]
--- OUTSIDE RECORDS SUMMARY | 2024-09-23 12:38 | XMS_ITS | Encounter Summary ---
Author Name [facility] [place] [facility] [place] Organization [facility] [place] Address [address] [place] [address] Care Team Providers Care Hris Specialist Name Role Phone OTIS DREW Primary Care [...] Robins's Name Patient's Relationship to Policy Robins [facility] MEDICARE SUPPLEMEN [place] MEDIC ARE ARSH CE Mar 07, 2020 [facility] [id number] OTIS KING PATIENT MEDICARE (WNR) MEDICARE (M) PART A January 05, 2009 PART A [id number] OTIS KING PATIENT MEDICARE (WNR) MEDICARE (M) PART B January 05, 2009 PART B [id number] OTIS KING PATIENT MEDICARE (WNR) MEDICARE (M) PART A January 05, 2009 PART A [id number] OTIS KING PATIENT MEDICARE (WNR) MEDICARE (M) PART B January 05, 2009 PART B [id number] [phone] [id number] OTIS KING PATIENT OPTUM RX PRESCRIPT JESSICA SCHWAB RD [facility] Mar 07, 2020 [id number] MIRIAMHARLEYOTIS PATIENT Selected Encounter This section includes the information on record at [place] for the Encounter. Date/Time Encounter Type Encounter Description Reason Pro vider Source Jun 07, 2024 12:00 AM Outpatient Encounter EVENT (HISTORICAL) IHE Encounter Template Text not used by [place] Plan of Treatment: Future Appointments (+ 6 [...] 20 appointments. The data comes from all [place] treatment facilities. Appointment Date/Time Appointment Type Appointme nt Facility Name Aug 19, 2024 03:00 PM AMBULATORY - MEDICINE [facility]
[2024-09-23 13:10] VITALS: BP 106/52; PULSE 80; RESP 12; TEMP 36.6; O2SAT 97
[2024-09-23 13:25] VITALS: BP 128/58; PULSE 82; RESP 14; O2SAT 95
[2024-09-23 13:40] VITALS: BP 122/57; PULSE 82; RESP 14; O2SAT 95
[2024-09-23 13:50] VITALS: BP 124/61; PULSE 84; RESP 16; TEMP 36.4; O2SAT 95
--- NOTE | 2024-09-23 14:30 | OP_ITS ---
DATE OF SERVICE: 09/23/2024 SURGEON: Shine Langley MD INDICATIONS: 1. Diverticulitis. 2. Diarrhea. 3. Abnormal findings in stool. PREOPERATIVE DIAGNOSIS: POSTOPERATIVE DIAGNOSIS: PROCEDURE PERFORMED: Upper endoscopy with biopsy, colonoscopy to the cecum with biopsy and snare polypectomy. ESTIMATED BLOOD LOSS: COMPLICATIONS: ANESTHESIA: Monitored anesthesia care. ASSISTANTS: SPECIMENS: DESCRIPTION OF PROCEDURE: A history and physical was performed. The risks and benefits of the procedure were explained to the patient and informed consent was obtained. The patient was placed in the left lateral decubitus position. The Olympus video gastroscope was introduced into the esophagus, stomach, and duodenum. Examination was performed and the scope was removed. He was repositioned for colonoscopy. A digital rectal exam was performed and was found to be normal. The Olympus pediatric video colonoscope was introduced into the rectum and advanced to the cecum. The cecum was identified by transillumination, palpation, and identification of ileocecal valve. Examination was performed and the scope was removed. He tolerated both procedures well and was returned to recovery area in stable condition. 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 This was biopsied. Stomach: The stomach showed multiple benign-appearing polyps in the body and fundus consistent with his history of previous polyps. Several of these were inflamed, but none were bleeding. Antral biopsies were obtained. Duodenum: The bulb and 2nd portion were normal. Biopsies were obtained from the 2nd portion. Colonoscopy: The terminal ileum was not examined. The visualized colonic mucosa was within normal limits without evidence of masses or ulcers. In the right colon, was a 15 mm polyp and a 7 mm polyp, both of which were removed using a hot snare and recovered with a Marte net. Another polyp in the hepatic flexure measuring less than 10 mm was removed with a hot snare and a final polyp at 70 cm was also removed with a hot snare measuring less than 10 mm. There was moderate sigmoid diverticulosis without diverticulitis. Sigmoid biopsies were obtained because of the patient's history of diarrhea. Retroflexed examination showed some moderate-sized internal hemorrhoids. IMPRESSION: 1. Godfrey esophagus. 2. Gastric polyps. 3. Colon polyps. RECOMMENDATION: Follow up the biopsy results. MD CELESTE Ontiveros/ROM / [id number]
== END 2024-09-23 13:58 | disposition home or self-care (01) ==
PROVIDERS: PCP Nurse Practitioner Family; Visit Provider Internal Medicine Gastroenterology
PROC: (CPT 45385; principal; 2024-09-23 12:10)
DX: K57.30 Diverticulosis of large intestine without perforation or abscess without bleeding (principal); R10.32 Left lower quadrant pain; R19.7 Diarrhea, unspecified; D12.2 Benign neoplasm of ascending colon; D12.3 Benign neoplasm of transverse colon; D12.4 Benign neoplasm of descending colon; K64.8 Other hemorrhoids; Z86.0101 Personal history of adenomatous and serrated colon polyps; K21.9 Gastro-esophageal reflux disease without esophagitis; K22.70 Barrett's esophagus without dysplasia; K31.7 Polyp of stomach and duodenum; I49.5 Sick sinus syndrome; Z95.0 Presence of cardiac pacemaker; I10 Essential (primary) hypertension; E78.5 Hyperlipidemia, unspecified; E11.9 Type 2 diabetes mellitus without complications; Z85.46 Personal history of malignant neoplasm of prostate; Z92.3 Personal history of irradiation; Z90.79 Acquired absence of other genital organ(s); Z79.4 Long term (current) use of insulin; Z79.84 Long term (current) use of oral hypoglycemic drugs; Z79.85 Long-term (current) use of injectable non-insulin antidiabetic drugs; Z79.899 Other long term (current) drug therapy; Z98.890 Other specified postprocedural states; Z87.891 Personal history of nicotine dependence
CPT/HCPCS: 45385; 45380; 43239; 82947; 88305; 88313; 88341; 88342; J2003; J2704